=== PATIENT | male | born 1965 | race Caucasian/White ===

== ENCOUNTER 2017-06-24 08:30 | Inpatient (IN) | payer OTHER ==
[~2017-06-24] VITALS: Ht 177.8 cm; Wt 65.8 kg
[2017-06-24 11:41] LABS: BASOPHIL % 0.2 % (0-2); PLATELET COUNT 231 x10^3mcL (130-400); RED CELL DISTRIBUTION WIDTH 13.6 % (11.5-14.5)
[2017-06-24 11:58] LABS: CALCIUM 8.8 mg/dL (8.5-10.1); CARBON DIOXIDE 29.3 mmol/L (21-32); CHLORIDE SERUM 104 mmol/L (98-107); CREATININE SERUM 0.9 mg/dL (0.7-1.3); GFR1 > 60 mL/min; GLUCOSE SERUM 148 mg/dL (74-106); POTASSIUM SERUM 3.8 mmol/L (3.5-5.1); SODIUM SERUM 139 mmol/L (136-145)
[2017-06-24 12:02] LABS: ALKALINE PHOSPHATASE 70 U/L (46-116); ALT/SGPT 35 U/L (16-63); AST/SGOT 25 U/L (15-37); BILIRUBIN TOTAL 0.46 mg/dL (0.20-1.00); CHOLESTEROL 230 mg/dL (<200); CHOLESTEROL/HDL RATIO 3.5; HDL CHOLESTEROL 65 mg/dL (40-60); LIPASE 125 IU/L (73-393); TOTAL PROTEIN, SERUM 7.1 g/dL (6.4-8.2); TRIGLYCERIDES 62 mg/dL (<150)
[2017-06-24 12:12] LABS: T3 TOTAL 0.75 ng/mL
[2017-06-24 12:57] LABS: FREE T4 0.52 ng/dL (0.76-1.46)
[2017-06-24 13:15] LABS: FREE THYROXINE INDEX 1.1 ug/dL (1.4-4.5); T4(THYROXINE) 3.7 ug/dL (4.7-13.3)
[2017-06-24 13:47] VITALS: BP 102/55
[2017-06-24 13:49] VITALS: Ht 177.8 cm; Wt 65.8 kg
[2017-06-24] MEDS ORDERED: CYCLOBENZAPRINE5 MG PO (14:06)
[2017-06-24] MEDS ORDERED: NAPROXEN375 MG PO (14:07)
[2017-06-24 15:51] LABS: PHOSPHOROUS 2.8 mg/dL (2.5-4.9)
[2017-06-24 16:43] VITALS: BP 100/62
[2017-06-24 18:25] LABS: microscopic required? YES; urine erythrocyte TRACE (NEGATIVE)
[2017-06-24 18:33] LABS: AMPHETAMINE QUAL UR NONE DETECTED (NEG <=1000)
[2017-06-24 21:20] VITALS: BP 90/53
[2017-06-24 22:05] VITALS: BP 93/49
[2017-06-25 05:55] VITALS: BP 85/49
[2017-06-25 06:50] LABS: PLATELET COUNT 209 x10^3mcL (130-400); RED CELL DISTRIBUTION WIDTH 13.8 % (11.5-14.5)
[2017-06-25 06:55] VITALS: BP 95/52
[2017-06-25 06:55] LABS: CALCIUM 8.2 mg/dL (8.5-10.1); CARBON DIOXIDE 27.9 mmol/L (21-32); CHLORIDE SERUM 106 mmol/L (98-107); CREATININE SERUM 0.9 mg/dL (0.7-1.3); GFR1 > 60 mL/min; GLUCOSE SERUM 115 mg/dL (74-106); MAGNESIUM 1.9 mg/dL (1.8-2.4); PHOSPHOROUS 3.7 mg/dL (2.5-4.9); POTASSIUM SERUM 4.7 mmol/L (3.5-5.1); SODIUM SERUM 139 mmol/L (136-145)
[2017-06-25 06:59] LABS: BASOPHIL % 0 % (0-2)
[2017-06-25 09:42] VITALS: BP 94/56
[2017-06-25 13:19] VITALS: BP 107/63
[2017-06-25 17:46] VITALS: BP 95/61
[2017-06-25 21:27] VITALS: BP 107/72
[2017-06-26 05:39] VITALS: BP 118/59
[2017-06-26] MEDS ORDERED: ROB750 PO (05:59)
[2017-06-26] MEDS ORDERED: ROBAXIN-750750 MG PO (06:02)
[2017-06-26] MEDS ORDERED: LIPI10 PO (06:03)
[2017-06-26] MEDS ORDERED: TOR10 PO (06:07)
[2017-06-26] MEDS ORDERED: COL100 PO (06:13)
[2017-06-26] MEDS ORDERED: ELA25 PO (06:13)
[2017-06-26] MEDS ORDERED: SYN1 PO (06:16)
[2017-06-26 06:58] LABS: PLATELET COUNT 203 x10^3mcL (130-400); RED CELL DISTRIBUTION WIDTH 13.7 % (11.5-14.5)
[2017-06-26 07:01] LABS: BASOPHIL % 0 % (0-2)
[2017-06-26 07:12] LABS: CALCIUM 8.2 mg/dL (8.5-10.1); CARBON DIOXIDE 30.1 mmol/L (21-32); CHLORIDE SERUM 106 mmol/L (98-107); CREATININE SERUM 0.9 mg/dL (0.7-1.3); GFR1 > 60 mL/min; GLUCOSE SERUM 127 mg/dL (74-106); MAGNESIUM 2.1 mg/dL (1.8-2.4); PHOSPHOROUS 3.3 mg/dL (2.5-4.9); SODIUM SERUM 140 mmol/L (136-145)
[2017-06-26 08:22] VITALS: BP 113/73
[2017-06-26 17:56] VITALS: BP 116/76
[2017-06-26 21:54] VITALS: BP 108/67
[2017-06-27 06:16] VITALS: BP 110/60
[2017-06-27 07:19] LABS: PLATELET COUNT 195 x10^3mcL (130-400); RED CELL DISTRIBUTION WIDTH 13.5 % (11.5-14.5)
[2017-06-27 07:21] LABS: BASOPHIL % 0 % (0-2)
[2017-06-27 09:45] VITALS: BP 105/62
[2017-06-27 10:22] VITALS: BP 105/62
[2017-06-28] MEDS ORDERED: MEDDP PO (06:00)
== END 2017-06-27 11:23 | disposition home health service (06) | DRG 74 ==
LOC: ED 08:30 → DU 11:33 → MU 06-26 07:58
PROVIDERS: Family Medicine Sports Medicine; Specialist; ADMIT Family Medicine
DX: G57.01 Lesion of sciatic nerve, right lower limb (principal); M51.36 Other intervertebral disc degeneration, lumbar region; E03.9 Hypothyroidism, unspecified; E78.5 Hyperlipidemia, unspecified; Z68.22 Body mass index [BMI] 22.0-22.9, adult; D72.829 Elevated white blood cell count, unspecified
CPT/HCPCS: 46300; 83880; 84439; 97110-GP; 97116-GP; 97530-GP; G0378; J1100; J1170; J1885; J2001; J2270; J2800; J3010; J3490; J7030; J7040; J7512; Q0092; Q0162